=== PATIENT | female | born 1970 | race Caucasian/White ===

== ENCOUNTER 2017-09-23 23:20 | Emergency (ER) | payer OTHER ==
[~2017-09-23] VITALS: Ht 165.1 cm; Wt 54.4 kg
[2017-09-24] MEDS ORDERED: LACTATED RINGERS 1,000 ML IV ONE (00:19)
--- NOTE | 2017-09-24 00:23 | ED GU-Female ---
General Chief Complaint: -Female Stated Complaint: AB PAIN W BLEEDING Nursing Triage Note: pt presents to er with complaint of left lower sided abd pain and vaginal bleeding. Pt states she has had this for a week, but the bleeding worsened today. states she saw her esl professor on monday and they wanted to do a uterine biopsy. states she had a h&h performed yesterday and thought her hgb was 11.3 and hct 35. states she has been filling a super tampon every 30 minutes. Nursing Sepsis Screen: No Definite Risk Source: patient, family, spouse Exam Limitations: no limitations History of Present Illness Date Seen by Provider: Sep 24, 2017 Time Seen by Provider: 00:11 Initial Comments Patient is in [place] visiting for a sports event and she says for the past few weeks she's been having some intermittent vaginal bleeding sometimes using tampons as often as once an hour. She saw her doctor recommended and set up an endometrial biopsy appointment as well as got ultrasound CT of her belly because she was having some pain on the left side of her lower abdomen and pelvis. The pain is intermittent as well, dental and the imaging did reveal that she had an increased endometrial thickening but nothing else relevant per the patient. She was set up for an appointment Monday, 3 days from now for a esl professor to do her workup. She says last couple days it's been so heavy that she can't even sit throughout 1 hour long conference without having to get up and change a tampon. She says this concerned her so she called her doctor and they got some lab drawn at the [facility] showing her hemoglobin to be low but she does not member what the number was. Today she called the telemedicine again because she was starting to feel woozy lightheaded and dizzy whenever she stood up and they told her to be seen in the ER. Allergies and Home Medications Allergies Coded Allergies: No Known Drug Allergies (Unverified , 09/23/17) Home Medications No Active Prescriptions or Reported Meds Patient Home Medication List Home Medication List Reviewed: Yes Constitutional: No chills, No diaphoresis EENTM: No ear pain, No eye pain Respiratory: No cough, No short of breath Cardiovascular: No chest pain, No palpitations Gastrointestinal: No abdominal pain, No nausea, No vomiting Genitourinary: denies discharge, denies dysuria : No Past Rsmequn-Rjdcum-Xmhsmb Hx Patient Social History Alcohol Use: Occasionally Uses Recreational Drug Use: No Smoking Status: Never a Smoker Recent Foreign Travel: No Contact w/Someone Who Travel: No Recent Infectious Disease Expo: No Recent Hopitalizations: No Immunizations Up To Date PED Vaccines UTD: Yes Seasonal Allergies Seasonal Allergies: No Surgeries Surgeries: Breast, Orthopedic, Tonsillectomy Respiratory History of Respiratory Disorde: No Cardiovascular History of Cardiac Disorders: No Neurological History of Neurological Disord: No Genitourinary History of Genitourinary Disor: No Gastrointestinal History of Gastrointestinal Di: No Musculoskeletal History of Musculoskeletal Dis: No Endocrine History of Endocrine Disorders: No HEENT History of HEENT Disorders: No Cancer History of Cancer: No Psychosocial History of Psychiatric Problem: No Integumentary History of Skin or Integumenta: No Blood Transfusions History of Blood Disorders: No Physical Exam Vital Signs Vital Signs - First Documented 09/23/17 23:44 Temp 98.0 Pulse 65 Resp 18 B/P (MAP) 123/87 (99) Pulse Ox 99 O2 Delivery Room Air Capillary Refill : Less Than 3 Seconds General Appearance: WD/WN, no apparent distress HEENT: PERRL/EOMI, pharynx normal (oral mucosa is mildly dry) Neck: non-tender, normal inspection Cardiovascular: normal peripheral pulses, regular rate, rhythm, no edema Respiratory: chest non-tender, lungs clear, normal breath sounds, no respiratory distress, no accessory muscle use Gastrointestinal: normal bowel sounds, non tender Neurologic/Psychiatric: alert, oriented x 3 Skin: normal color, warm/dry Progress/Results/Core Measures Suspected Sepsis Recent Fever Within 48 Hours: No Infection Criteria Present: None New/Unexplained Altered Menta: No Sepsis Screen: No Definite Risk Sepsis Diagnosis: SIRS Temperature:98.0 Pulse: 65 Respiratory Rate: 18 Laboratory Tests 09/24/17 01:01: White Blood Count 8.3 Blood Pressure 123 /87 Mean: 99 Laboratory Tests 09/24/17 01:01: Creatinine 0.72, Platelet Count 249, Total Bilirubin 0.2 Results/Orders Lab Results Laboratory Tests Test 09/24/17 01:01 Range/Units White Blood Count 8.3 4.3-11.0 10^3/uL Red Blood Count 3.59 L 4.35-5.85 10^6/uL Hemoglobin 10.7 L 11.5-16.0 G/DL Hematocrit 32 L 35-52 % Mean Corpuscular Volume 89 80-99 FL Mean Corpuscular Hemoglobin 30 25-34 PG Mean Corpuscular Hemoglobin Concent 34 32-36 G/DL Red Cell Distribution Width 13.2 10.0-14.5 % Platelet Count 249 130-400 10^3/uL Mean Platelet Volume 10.4 7.4-10.4 FL Neutrophils (%) (Auto) 57 42-75 % Lymphocytes (%) (Auto) 29 12-44 % Monocytes (%) (Auto) 9 0-12 % Eosinophils (%) (Auto) 4 0-10 % Basophils (%) (Auto) 0 0-10 % Neutrophils # (Auto) 4.7 1.8-7.8 X 10^3 Lymphocytes # (Auto) 2.4 1.0-4.0 X 10^3 Monocytes # (Auto) 0.8 0.0-1.0 X 10^3 Eosinophils # (Auto) 0.4 H 0.0-0.3 10^3/uL Basophils # (Auto) 0.0 0.0-0.1 10^3/uL Urine Color JOSIE H Urine Clarity VERY CLOUDY H Urine pH 5 5-9 Urine Specific [place] 1.020 1.016-1.022 Urine Protein 2+ H NEGATIVE Urine Glucose (UA) NEGATIVE NEGATIVE Urine Ketones NEGATIVE NEGATIVE Urine Nitrite NEGATIVE NEGATIVE Urine Bilirubin NEGATIVE NEGATIVE Urine Urobilinogen NORMAL NORMAL MG/DL Urine Leukocyte Esterase 1+ H NEGATIVE Urine RBC (Auto) 5+ H NEGATIVE Urine RBC TNTC H /HPF Urine WBC 2-5 /HPF Urine Squamous Epithelial Cells 5-10 /HPF Urine Crystals NONE /LPF Urine Bacteria FEW H /HPF Urine Casts NONE /LPF Urine Mucus NEGATIVE /LPF Urine Culture Indicated YES Sodium Level 139 135-145 MMOL/L Potassium Level 3.3 L 3.6-5.0 MMOL/L Chloride Level 110 H 98-107 MMOL/L Carbon Dioxide Level 23 21-32 MMOL/L Anion Gap 6 5-14 MMOL/L Blood Urea Nitrogen 9 7-18 MG/DL Creatinine 0.72 0.60-1.30 MG/DL Estimat Glomerular Filtration Rate > 60 BUN/Creatinine Ratio 13 Glucose Level 101 70-105 MG/DL Calcium Level 8.5 8.5-10.1 MG/DL Total Bilirubin 0.2 0.1-1.0 MG/DL Aspartate Amino Transf (AST/SGOT) 13 5-34 U/L Alanine Aminotransferase (ALT/SGPT) 16 0-55 U/L Alkaline Phosphatase 45 40-136 U/L Total Protein 6.1 L 6.4-8.2 GM/DL Albumin 3.9 3.2-4.5 GM/DL Serum Test, Qualitative NEGATIVE NEGATIVE Monoscreen NEGATIVE NEGATIVE My Orders Orders - JUDITH GONZALEZ Saline Lock/Iv-Start (09/24/17 00:19) Cbc With Automated Diff (09/24/17:19) Comprehensive Metabolic Panel (09/24/17:) Hcg,Qualitative Serum (09/24/17:) Monotest (09/24/17:) Ua Culture If Indicated (09/24/17:) Type And Screen (09/24/17:) Lactated Ringers (Lr 1000 Ml Iv Solution (09/24/17:19) Urine Culture (09/24/17 01:01) Medications Given in ED Current Medications Medications Dose Ordered Sig/Maddi Route Start Time Stop Time Status Last Admin Dose Admin Lactated Ringer's 1,000 ml @ 0 mls/hr Q0M ONCE IV 09/24/17 00:19 09/24/17 00:22 DC 09/24/17 01:08 1,000 MLS/HR Vital Signs/I&O Vital Sign - Last 12Hours 09/23/17 23:44 Temp 98.0 Pulse 65 Resp 18 B/P (MAP) 123/87 (99) Pulse Ox 99 O2 Delivery Room Air Capillary Refill : Less Than 3 Seconds Blood Pressure Mean: 99 Progress Note : Time: 03:11 Progress Note Patient feels much better her wooziness in her head has resolved after bag of fluids and receiving the news that her hemoglobin was 10.7. She says the reason she came to the ER because when she got the telemedicine doctor that they told her that she was playing the lottery and could have a heart attack or worse if she did not get it checked out immediately no she just had an H&H the day before. From our standpoint she is okay to fly home and keep her follow-up appointment in 3 days with a esl professor. Departure Impression Impression: Primary Impression: Abnormal uterine bleeding unrelated to menstrual cycle Disposition: HOME, SELF-CARE Condition: Stable Departure-Patient Inst. Decision time for Depature: 03:13 Referrals: NO,LOCAL PHYSICIAN (PCP) Primary Care Physician Patient Instructions: IRREGULAR VAGINAL BLEEDING Add. Discharge Instructions: Keep your follow-up appointments as scheduled. If you begin to have chest pain or severe shortness of breath with exertion you should follow-up sooner. All discharge instructions reviewed with patient and/or family. Voiced understanding. Scripts No Active Prescriptions or Reported Meds JUDITH GONZALEZ Sep 24, 2017 00:23
[2017-09-24 01:08] LABS: BASOPHILS % (AUTO) 0 % (0-10); EOSINOPHILS # (AUTO) 0.4 10^3/uL (0.0-0.3); EOSINOPHILS % (AUTO) 4 % (0-10); HEMATOCRIT 32 % (35-52); HEMOGLOBIN 10.7 G/DL (11.5-16.0); LYMPHOCYTES # (AUTO) 2.4 X 10^3 (1.0-4.0); LYMPHOCYTES % (AUTO) 29 % (12-44); MEAN CORPUSCULAR HEMOGLOBIN 30 PG (25-34); MEAN CORPUSCULAR HGB CONC 34 G/DL (32-36); MEAN CORPUSCULAR VOLUME 89 FL (80-99); MEAN PLATELET VOLUME 10.4 FL (7.4-10.4); MONOCYTES # (AUTO) 0.8 X 10^3 (0.0-1.0); MONOCYTES % (AUTO) 9 % (0-12); NEUTROPHILS # (AUTO) 4.7 X 10^3 (1.8-7.8); NEUTROPHILS % (AUTO) 57 % (42-75); PLATELET COUNT 249 10^3/uL (130-400); RED BLOOD COUNT 3.59 10^6/uL (4.35-5.85); RED CELL DISTRIBUTION WIDTH 13.2 % (10.0-14.5); WHITE BLOOD COUNT 8.3 10^3/uL (4.3-11.0)
[2017-09-24 01:10] LABS: BILIRUBIN,URINE NEGATIVE (NEGATIVE); CLARITY,URINE VERY CLOUDY; COLOR,URINE AMBER; GLUCOSE, URINE (UA) NEGATIVE (NEGATIVE); KETONES,URINE NEGATIVE (NEGATIVE); LEUKOCYTE ESTERASE ,URINE 1+ (NEGATIVE); NITRITE,URINE NEGATIVE (NEGATIVE); PH,URINE 5 (5-9); PROTEIN,URINE 2+ (NEGATIVE); UROBILINOGEN,URINE NORMAL (NORMAL)
[2017-09-24 01:23] LABS: BACTERIA,URINE FEW /HPF; RBC,URINE TNTC /HPF
[2017-09-24 01:27] LABS: ALANINE AMINOTRANSFERASE 16 U/L (0-55); ALBUMIN 3.9 GM/DL (3.2-4.5); ALKALINE PHOSPHATASE 45 U/L (40-136); BILIRUBIN,TOTAL 0.2 MG/DL (0.1-1.0); BUN/CREATININE RATIO 13; CALCIUM 8.5 MG/DL (8.5-10.1); CARBON DIOXIDE 23 MMOL/L (21-32); CHLORIDE 110 MMOL/L (98-107); CREATININE SERUM 0.72 MG/DL (0.60-1.30); GFR ESTIMATED > 60; GLUCOSE 101 MG/DL (70-105); POTASSIUM 3.3 MMOL/L (3.6-5.0); SODIUM 139 MMOL/L (135-145); TOTAL PROTEIN 6.1 GM/DL (6.4-8.2)
[2017-09-24 03:29] VITALS: BP 123/87
== END 2017-09-24 03:29 | disposition home or self-care (01) ==
LOC: ER 23:24
DX: N93.9 Abnormal uterine and vaginal bleeding, unspecified (principal); Z32.02 Encounter for pregnancy test, result negative; Z90.89 Acquired absence of other organs